=== PATIENT | female | born 1970 | race African-American/Black ===

== ENCOUNTER 2017-12-29 11:51 | Day surgery (SDC) | payer OTHER ==
[2017-12-29 13:13] VITALS: BMI 31.9
[2017-12-29 16:40] VITALS: PULSE 84; TEMP 98.5
[2017-12-29 16:47] VITALS: BP 122/67
== END 2017-12-29 16:10 | disposition home or self-care (01) ==
LOC: FASU 11:51
PROVIDERS: ATTEND Pain Medicine Interventional Pain Medicine
PROC: 3E0R33Z Introduction of Anti-inflammatory into Spinal Canal, Percutaneous Approach (ICD-10-PCS; principal; 2017-12-29)
PROC: B01BZZZ Fluoroscopy of Spinal Cord (ICD-10-PCS; 2017-12-29)
DX: M54.16 Radiculopathy, lumbar region (principal)
CPT/HCPCS: 72100-TC-FY; 82962